=== PATIENT | female | born 1990 ===

== ENCOUNTER → 2020-06-21 | Outpatient (CLI) | payer SELFPAY ==
[2020-06-21 19:18] LABS: Candida species (DNA Probe) Negative (NEGATIVE); G. vaginalis (DNA Probe) Negative (NEGATIVE); T. vaginalis (DNA Probe) Negative (NEGATIVE)
== END | disposition home or self-care (01) ==
LOC: LAB 16:50 → LAB SHORT 16:50
PROVIDERS: Physician Assistant
DX: N77.1 Vaginitis, vulvitis and vulvovaginitis in diseases classified elsewhere (principal)
CPT/HCPCS: 87480; 87510; 87660